=== PATIENT | female | born 1975 | race Caucasian/White ===

== ENCOUNTER → 2017-01-15 | Outpatient (CLI) | payer OTHER | LOC: EMI 01-11 13:45 | DX: G43.909 Migraine, unspecified, not intractable, without status migrainosus (principal); J34.1 Cyst and mucocele of nose and nasal sinus | CPT/HCPCS: 70551 ==

== ENCOUNTER → 2021-08-23 | Outpatient (CLI) | payer BC | LOC: LAB 17:19 | DX: Z01.812 Encounter for preprocedural laboratory examination (principal) | CPT/HCPCS: 87081 ==